=== PATIENT | female | born 2000 | race Caucasian/White ===

== ENCOUNTER 2023-07-13 00:03 | Inpatient (IN) | payer OTHER ==
[~2023-07-13] VITALS: Ht 157.5 cm; Wt 70.5 kg
[2023-07-13 00:17] VITALS: BP 136/87
[2023-07-13 02:15] VITALS: BP 133/96
[2023-07-13] MEDS ORDERED: PRENATAL TABLE1 EAC2 PO (03:50)
[2023-07-13 03:57] LABS: BASOPHILS ABSOLUTE AUTO 0.08 K/mm3 (0.00-0.23); BASOPHILS PERCENT AUTO 1 % (0-2); EOSINOPHILS ABSOLUTE AUTO 0.03 K/mm3 (0.00-0.68); EOSINOPHILS PERCENT AUTO 0 % (0-6); Hemoglobin 11.1 g/dL (11.5-16.0); IMMATURE GRAN ABSOLUTE AUTO 0.04 K/mm3 (0.00-0.10); IMMATURE GRAN PERCENT AUTO 0 % (0-1); LYMPHOCYTES ABSOLUTE AUTO 1.62 K/mm3 (0.84-5.20); LYMPHOCYTES PERCENT AUTO 11 % (21-46); MONOCYTES ABSOLUTE AUTO 0.66 K/mm3 (0.16-1.47); MONOCYTES PERCENT AUTO 4 % (4-13); Mean Corpuscular HGB 26.7 pg (26.0-34.0); Mean Corpuscular HGB Conc 32.6 g/dL (31.5-36.5); Mean Corpuscular Volume 82 fL (80-100); NEUTROPHILS ABSOLUTE AUTO 12.78 K/mm3 (1.96-9.15); NEUTROPHILS PERCENT AUTO 84 % (41-73); Platelet Count 172 K/mm3 (150-400); RDW Coefficient Variation 12.8 % (11.7-14.2); RDW Standard Deviation 38.4 fL (35.1-46.3); Red Blood Cell Count 4.16 M/mm3 (3.80-5.20); White Blood Cell Count 15.21 K/mm3 (4.00-11.30)
[2023-07-13 03:58] LABS: Mean Platelet Volume 13.5 fL (9.1-12.4)
[2023-07-13 08:03] VITALS: BP 134/78
[2023-07-13 11:19] VITALS: BP 129/82
[2023-07-13] MEDS ORDERED: PROM25 PO (11:58)
== END 2023-07-13 12:15 | disposition home or self-care (01) | DRG 833 ==
LOC: OBS 00:03 → BC 00:08 → OBS 02:59 → BC 03:07
PROVIDERS: ADMIT Advanced Practice Midwife
PROC: 4A1HXCZ Monitoring of Products of Conception, Cardiac Rate, External Approach (ICD-10-PCS; principal; 2023-07-13)
DX: O42.02 Full-term premature rupture of membranes, onset of labor within 24 hours of rupture (principal); Z3A.39 39 weeks gestation of pregnancy
CPT/HCPCS: 36415; 59025; 76815; 81003; 85025; 86850; 86900; 86901; 87210; A9270; J0780; J2405

== ENCOUNTER 2023-07-14 23:48 | Inpatient (IN) | payer OTHER ==
[~2023-07-14] VITALS: Ht 157.5 cm; Wt 70.4 kg
[~2023-07-14 23:48] MED LIST: PRENATAL TABLE1 EAC2 PO; PROM25 PO
[2023-07-15] VITALS (36 sets, daily range): BP systolic 109–207; BP diastolic 56–100
[2023-07-15 00:13] LABS: Hemoglobin 10.9 g/dL (11.5-16.0); Mean Corpuscular HGB 26.7 pg (26.0-34.0); Mean Corpuscular Volume 81 fL (80-100); Platelet Count 168 K/mm3 (150-400); RDW Coefficient Variation 12.8 % (11.7-14.2); RDW Standard Deviation 37.5 fL (35.1-46.3); Red Blood Cell Count 4.08 M/mm3 (3.80-5.20)
[2023-07-15 00:17] LABS: BASOPHILS ABSOLUTE AUTO 0.06 K/mm3 (0.00-0.23); BASOPHILS PERCENT AUTO 0 % (0-2); EOSINOPHILS ABSOLUTE AUTO 0.12 K/mm3 (0.00-0.68); EOSINOPHILS PERCENT AUTO 1 % (0-6); IMMATURE GRAN ABSOLUTE AUTO 0.07 K/mm3 (0.00-0.10); IMMATURE GRAN PERCENT AUTO 1 % (0-1); LYMPHOCYTES ABSOLUTE AUTO 3.54 K/mm3 (0.84-5.20); LYMPHOCYTES PERCENT AUTO 24 % (21-46); MONOCYTES ABSOLUTE AUTO 1.44 K/mm3 (0.16-1.47); MONOCYTES PERCENT AUTO 10 % (4-13); Mean Platelet Volume 13.1 fL (9.1-12.4); NEUTROPHILS PERCENT AUTO 65 % (41-73); White Blood Cell Count 14.93 K/mm3 (4.00-11.30)
[2023-07-15 16:29] LABS: Hemoglobin 9.5 g/dL (11.5-16.0); Mean Corpuscular HGB 26.5 pg (26.0-34.0); Mean Corpuscular HGB Conc 32.8 g/dL (31.5-36.5); Mean Corpuscular Volume 81 fL (80-100); Platelet Count 130 K/mm3 (150-400); RDW Coefficient Variation 12.6 % (11.7-14.2); RDW Standard Deviation 37.5 fL (35.1-46.3); Red Blood Cell Count 3.58 M/mm3 (3.80-5.20); White Blood Cell Count 18.95 K/mm3 (4.00-11.30)
[2023-07-16 05:48] VITALS: BP 121/83
[2023-07-16 06:13] LABS: Hematocrit 26.9 % (33.0-51.0); Hemoglobin 8.9 g/dL (11.5-16.0); Mean Corpuscular HGB Conc 33.1 g/dL (31.5-36.5); Mean Corpuscular Volume 82 fL (80-100); Platelet Count 117 K/mm3 (150-400); RDW Coefficient Variation 12.7 % (11.7-14.2); RDW Standard Deviation 37.6 fL (35.1-46.3)
[2023-07-16 07:23] LABS: Mean Platelet Volume 13.4 fL (9.1-12.4); White Blood Cell Count 10.75 K/mm3 (4.00-11.30)
[2023-07-16 09:18] VITALS: BP 132/84
[2023-07-16 10:33] VITALS: BP 138/90
== END 2023-07-16 10:54 | disposition home or self-care (01) | DRG 806 ==
LOC: OBS 23:48 → BC 23:48 → OBS 23:59 → BC 07-15 00:02
PROVIDERS: ADMIT Advanced Practice Midwife
PROC: 10E0XZZ Delivery of Products of Conception, External Approach (ICD-10-PCS; principal; 2023-07-15)
PROC: 0HQ9XZZ Repair Perineum Skin, External Approach (ICD-10-PCS; 2023-07-15)
DX: O99.324 Drug use complicating childbirth (principal); O72.1 Other immediate postpartum hemorrhage; Z37.0 Single live birth; F12.90 Cannabis use, unspecified, uncomplicated; Z3A.39 39 weeks gestation of pregnancy; O70.0 First degree perineal laceration during delivery; Z86.19 Personal history of other infectious and parasitic diseases
CPT/HCPCS: 36415; 51702; 85025; 85027; 86850; 86900; 86901; A9270; J2590; J3010; J7120

== ENCOUNTER → 2024-09-10 | Outpatient (CLI) | payer OTHER ==
[2024-09-10 17:39] LABS: Source, Urine Clean Catch
[2024-09-10 19:18] LABS: Appearance, Urine Hazy (Clear); Bilirubin, Urine Neg (Neg); Blood, Urine Neg (Neg); Color, Urine Yellow (P-Yellow); Glucose Qualitative, Urine Neg (Neg); Ketones, Urine Neg (Neg); Leukocyte Esterase, Urine Neg (Neg); Nitrite, Urine Pos (Neg); Protein, Urine Neg (Neg); Urobilinogen, Urine NORM (Normal)
[2024-09-10 19:49] LABS: Amorphous Light (0-Heavy); Bacteria Mod /hpf; Calcium Oxalate Crystals Mod /hpf; Red Blood Cells, Urine Not Seen /hpf (0-2); Squamous Epithelial Cells Rare /hpf (Few); White Blood Cells, Urine 0-2 /hpf (0-5)
== END | disposition home or self-care (01) ==
LOC: LAB 17:36 → LAB SHORT 17:36
PROVIDERS: Advanced Practice Midwife
DX: Z34.92 Encounter for supervision of normal pregnancy, unspecified, second trimester (principal)
CPT/HCPCS: 81001; 87086

== ENCOUNTER → 2024-10-15 | Outpatient (CLI) | payer OTHER ==
[2024-10-15 18:29] LABS: Source, Urine Clean Catch
[2024-10-15 19:09] LABS: BASOPHILS ABSOLUTE AUTO 0.05 K/mm3 (0.00-0.23); BASOPHILS PERCENT AUTO 0 % (0-2); EOSINOPHILS ABSOLUTE AUTO 0.13 K/mm3 (0.00-0.68); EOSINOPHILS PERCENT AUTO 1 % (0-6); Hematocrit 30.1 % (33.0-51.0); IMMATURE GRAN ABSOLUTE AUTO 0.07 K/mm3 (0.00-0.10); IMMATURE GRAN PERCENT AUTO 1 % (0-1); LYMPHOCYTES ABSOLUTE AUTO 1.78 K/mm3 (0.84-5.20); LYMPHOCYTES PERCENT AUTO 16 % (21-46); MONOCYTES ABSOLUTE AUTO 0.95 K/mm3 (0.16-1.47); MONOCYTES PERCENT AUTO 8 % (4-13); Mean Corpuscular HGB 27.9 pg (26.0-34.0); Mean Corpuscular HGB Conc 33.2 g/dL (31.5-36.5); Mean Corpuscular Volume 84 fL (80-100); Mean Platelet Volume 12.6 fL (9.1-12.4); NEUTROPHILS ABSOLUTE AUTO 8.32 K/mm3 (1.96-9.15); NEUTROPHILS PERCENT AUTO 74 % (41-73); Platelet Count 167 K/mm3 (150-400); RDW Coefficient Variation 12.9 % (11.7-14.2); RDW Standard Deviation 39.8 fL (35.1-46.3); Red Blood Cell Count 3.58 M/mm3 (3.80-5.20)
[2024-10-15 19:50] LABS: Appearance, Urine Cloudy (Clear); Bilirubin, Urine Neg (Neg); Blood, Urine Neg (Neg); Color, Urine Yellow (P-Yellow); Glucose Qualitative, Urine Neg (Neg); Ketones, Urine Neg (Neg); Leukocyte Esterase, Urine Neg (Neg); Nitrite, Urine Neg (Neg); Protein, Urine 1+ (Neg); Urobilinogen, Urine NORM (Normal)
[2024-10-15 19:58] LABS: Amorphous Heavy (0-Heavy); Bacteria Few /hpf; Red Blood Cells, Urine 0-2 /hpf (0-2); Squamous Epithelial Cells Few /hpf (Few); White Blood Cells, Urine 0-2 /hpf (0-5)
[2024-10-15 21:21] LABS: Thyroid Stimulating Hormone 1.91 uIU/mL (0.360-4.800)
== END ==
LOC: LAB SHORT 16:47 → LAB 16:47
PROVIDERS: Advanced Practice Midwife
DX: Z34.82 Encounter for supervision of other normal pregnancy, second trimester (principal)
CPT/HCPCS: 81001; 82950; 84443; 85025; 87086

== ENCOUNTER → 2024-11-25 | Outpatient (CLI) | payer OTHER ==
[2024-11-25 18:43] LABS: Source, Urine Clean Catch
[2024-11-25 18:49] LABS: Appearance, Urine Clear (Clear); Bilirubin, Urine Neg (Neg); Blood, Urine Neg (Neg); Color, Urine Yellow (P-Yellow); Glucose Qualitative, Urine Neg (Neg); Ketones, Urine 3+ (Neg); Leukocyte Esterase, Urine Neg (Neg); Nitrite, Urine Pos (Neg); Protein, Urine 1+ (Neg); Urobilinogen, Urine NORM (Normal)
[2024-11-25 19:45] LABS: Amorphous Light (0-Heavy); Bacteria Mod /hpf; Red Blood Cells, Urine 0-2 /hpf (0-2); Squamous Epithelial Cells Few /hpf (Few); White Blood Cells, Urine 0-2 /hpf (0-5)
== END ==
LOC: LAB SHORT 18:39 → LAB 18:39
PROVIDERS: Advanced Practice Midwife
DX: Z34.83 Encounter for supervision of other normal pregnancy, third trimester (principal)
CPT/HCPCS: 81001; 87086

== ENCOUNTER → 2024-12-14 | Outpatient (CLI) | payer OTHER ==
[2024-12-14 20:02] LABS: Appearance, Urine Hazy (Clear); Bilirubin, Urine Neg (Neg); Blood, Urine 1+ (Neg); Color, Urine Yellow (P-Yellow); Glucose Qualitative, Urine Neg (Neg); Ketones, Urine Neg (Neg); Leukocyte Esterase, Urine 3+ (Neg); Nitrite, Urine Pos (Neg); Protein, Urine 2+ (Neg); Urobilinogen, Urine NORM (Normal); pH, Urine 6.5 (5.0-8.0)
[2024-12-14 20:28] LABS: Amorphous Light (0-Heavy); Bacteria Many /hpf; Calcium Oxalate Crystals Rare /hpf; Squamous Epithelial Cells Few /hpf (Few); White Blood Cells, Urine 25-50 /hpf (0-5)
== END ==
LOC: LAB 16:00 → LAB SHORT 16:00
PROVIDERS: Advanced Practice Midwife
DX: Z34.83 Encounter for supervision of other normal pregnancy, third trimester (principal)
CPT/HCPCS: 81001; 87086